=== PATIENT | female | born 1950 | race Caucasian/White ===

== ENCOUNTER 2017-04-13 16:59 | Emergency (ER) | payer OTHER ==
[~2017-04-13] VITALS: Ht 167.6 cm; Wt 60.0 kg
[2017-04-13 17:05] VITALS: BP 155/87
--- NOTE | 2017-04-13 17:36 | NUR ---
PT TAKEN TO BED 2.
--- NOTE | 2017-04-13 18:42 | NUR ---
USED PHONE TO TRANSLATE IN [place] ;SPOKE TO [facility]EREYRA W/ ID NUMBER OF [id number];PT WAS ONSTIPATED FOR 3 DAYS;PT TRIED TO STOOL SOFTENER AND MANUALY REMOVED HER FECES BUT CAN'T REMOVED THE STOOL;PT STATES SHE FEELS LIKE HER ANUS IS SWOLLEN AND IS VERY PAINFUL;PAIN IS AGGRAVATED BY SITTING AND WALKING;DENIES ANY ABDOMINAL PAIN N/V.DENIES ANY FEVER/SOB/CPOR COUGH.PT PLACED TO COMFORTABLE POSITION;NEEDS ATTENDED;ERMD MADE AWARE OF PT'S CONDITION;
--- NOTE | 2017-04-13 19:04 | NUR ---
Pt report given to JEROME WILSON. Transfer of care at this time.
--- NOTE | 2017-04-13 19:15 | NUR ---
DR. ESTEVES AND PATIENT USING TEACHER LIP READING. #[id number].
--- NOTE | 2017-04-13 19:53 | NUR ---
MOVED TO ER BED 1
--- NOTE | 2017-04-13 20:00 | NUR ---
PERFORMED FLEETS ENEMA. PT TOLERATED WELL. NOTED SMALL AMOUNT, 10G OF FECES EXPELLED.
[2017-04-13 21:40] VITALS: BP 150/85
== END 2017-04-13 21:40 | disposition home or self-care (01) ==
LOC: MED 16:59
DX: K59.00 Constipation, unspecified (principal)
CPT/HCPCS: 99284